=== PATIENT | male | born 1995 | race Two or more races ===

== ENCOUNTER 2024-09-17 22:53 | Emergency (ER) | payer MEDICAID, SELFPAY ==
[2024-09-17 22:53] VITALS: PULSE 83; RESP 18; O2SAT 99; BMI 25.0
[2024-09-17 23:01] VITALS: BP 133/65; PULSE 87; RESP 19; TEMP 36.8; O2SAT 99
--- NOTE | 2024-09-17 23:04 | PD.EDRME ---
Rapid Medical Screening Exam RME Arrival date/time: 09/17/24 22:53 28M with history of drug use, homelessness, and lower extremity cellulitis/osteo presents to ED with several days of LLE pain, swelling, and tenderness. Patient is on amoxicillin from clinic. Chief Complaint: Extremity Injury, Lower Vital signs: Vital Signs Temperature 98.2 F 09/17/24 23:01 Pulse Rate 87 09/17/24 23:01 Respiratory Rate 19 09/17/24 23:01 Blood Pressure 133/65 H 09/17/24 23:01 Pulse Oximetry (%) 99 09/17/24 23:01 Oxygen Delivery Method Room Air 09/17/24 23:01
--- NOTE | 2024-09-17 23:05 | XR_ITS ---
Examination: Duplex scan of the lower extremity, unilateral left complete Date and time of exam: September 17, 2024 11:38 PM Indications: Left leg swelling beginning one year ago post injury to the leg Technique: Duplex scan of the extremity veins using B-mode/grayscale imaging and Doppler spectral analysis and color flow Attention is directed to internal echogenicity, compression and augmentation involving these veins, color flow assessment, spectral analysis Findings: Major deep venous structures in the extremity demonstrate normal course and caliber. There is no evidence of deep vein thrombosis. Normal color flow and spectral analysis Impression: Negative for DVT..
[2024-09-17 23:54] LABS: Basophils % (Auto) 0 % (0-2.5); Eosinophils # (Auto) 0.1 Thou/mm3 (0.0-0.5); Eosinophils % (Auto) 1 % (0-10); Hematocrit 35.9 % (41.0-53.0); Hemoglobin 12.1 g/dL (13.5-16.0); Immature Granulocytes % (Auto) 0 % (0-0); Immature Granulocytes Auto 0.02 Thou/mm3 (0.00-0.00); Lymphocytes # (Auto) 1.3 Thou/mm3 (1.0-4.8); Lymphocytes % (Auto) 15 % (10-50); Mean Corpuscular HGB Conc 33.7 g/dl (31.0-37.0); Mean Corpuscular Hemoglobin 30.7 pg (25.0-35.0); Mean Corpuscular Volume 91 fL (80-100); Monocytes # (Auto) 0.7 Thou/mm3 (0.0-0.8); Monocytes % (Auto) 9 % (0-12); Neutrophils # (Auto) 6.5 Thou/mm3 (1.8-7.7); Neutrophils % (Auto) 75 % (37-80); Nucleated Red Blood Cell % 0 /100 WBC (0); Platelet Count 288 Thou/mm3 (140-440); RDW Standard Deviation 43.4 fL (35.1-43.9); Red Blood Count 3.94 Miln/mm3 (4.50-5.90); White Blood Count 8.6 Thou/mm3 (3.8-10.6)
[2024-09-18 00:15] LABS: Alanine Aminotransferase 16 U/L (10-49); Albumin, Serum 4.4 gm/dL (3.5-5.0); Albumin/Globulin Ratio 1.7 (1.2-2.2); Alkaline Phosphatase 199 U/L (46-116); Anion Gap 5 (7-16); Aspartate Amino Transferase < 8 U/L (0-34); BUN/Creatinine Ratio 18 Ratio (12-20); Bilirubin,Total 0.6 mg/dL (0.3-1.2); Blood Urea Nitrogen 14 mg/dL (9-23); C-Reactive Protein 2.7 mg/dL (0.0-0.9); Calcium 9.2 mg/dL (8.3-10.6); Calcium (Corrected) 9.2 mg/dL (8.5-10.1); Carbon Dioxide 28.7 mMol/L (20.0-31.0); Chloride 110 mMol/L (98-107); Creatinine (Component) 0.8 mg/dL (0.6-1.3); Estimated Creatinine Clearance 120.7 mL/min (>60); Globulin 2.6 gm/dL (2.3-3.5); Glucose 90 mg/dL (74-106); Osmolality,Calculated 287 (275-295); Potassium 3.5 mMol/L (3.4-5.1); Sodium 144 mMol/L (136-145); eGFR > 60 See Note
[2024-09-18 00:20] LABS: Sed Rate (ESR) 19 mm/hr (0-15)
--- NOTE | 2024-09-18 01:36 | XR_ITS ---
Examination: CT left lower leg, without contrast. 2-D sagittal reconstructions. 2-D coronal reconstructions. 3-D reconstructions. Date and time of exam:2023 0322 hrs. Indications: Left lower leg swelling and pain beginning 3 days ago, history operative reduction internal fixation fractures mid left tibial shaft on plain films October 04, 2023 CTDI: vol (mGy):7.95 DLP: (mGycm):588 Technique: Multiple 1.25 mm axial sections of the left lower leg have been obtained. 2-D sagittal and coronal reconstructions have been obtained. 3-D reconstructions have been obtained. Low dose protocols were performed. One or more of the following dose reduction techniques were used; automated exposure control, adjustment of the mA and/or KV according to patient size, use of iterative reconstruction technique. 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
--- NOTE | 2024-09-18 01:43 | PD.EDLOWEX ---
Lower Extremity Injury RME/HPI General Chief Complaint: Extremity Injury, Lower Stated Complaint: LEFT LEG SWELLING Time Seen by Provider: 09/18/24 06:03 Arrival date/time: 09/17/24 22:53 RME / HPI RME / HPI Narrative: 09/17/24 22:53 29-year-old male patient known case of homelessness, polysubstance use disorder, history of left tibia status post ORIF with nonunion, poor historian, presented to the ED due to left leg pain and swelling. Patient reported that he came to the ED previously and he was given amoxicillin and other antibiotics however he stopped using these medications and his swelling worsened and the pain become more severe. Patient denied any fever however he reported episodes of vomiting. Related Data Home Medications ?Medication ?Instructions ?Recorded ?Confirmed hydrocodone 5 mg-acetaminophen 325 1 tab PO Q8HR PRN Pain 12/10/23 mg tablet Previous Rx's ?Medication ?Instructions ?Recorded hydrocodone 5 mg-acetaminophen 325 1 tab PO BID PRN pain #8 tabs 05/06/24 mg tablet ibuprofen 800 mg tablet 800 mg PO TID PRN pain #30 tabs 05/06/24 ibuprofen 800 mg tablet 800 mg PO Q8H #14 tabs 06/13/24 Allergies Allergy/AdvReac Type Severity Reaction Status Date / Time No Known Allergies Allergy Verified 12/10/23 11:21 ED Exam Narrative Physical exam: GEN: Disheveled, easily distractible, poor eye contact HEENT: NC/AC, oral mucosa moist, neck supple CVS: RRR, S1-S2 present, no murmurs appreciated RESP: CTAB GI: soft,non distended, non tender, NBS MSK: Left lower extremity swelling, nonpitting, with tenderness, however no hotness. SKIN: Needle rodriguez on both cubital fossa's, left leg skin showed blackish discoloration, looks dirty. 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 Course Quality Measures none Orders Category Date Time Status CT lower leg LT wo con Stat Exams 09/18/24 01:36 Completed US venous doppler LE LT Stat Exams 09/17/24 23:05 Completed CBC Stat Lab 09/17/24 23:36 Completed CMP [Comprehensive Metabolic Panel] Stat Lab 09/17/24 23:36 Completed CRP [C-Reactive Protein] Stat Lab 09/17/24 23:36 Completed ESR [Sed Rate (ESR)] Stat Lab 09/17/24 23:36 Completed LORazepam [Ativan Inj] Med 09/18/24 08:44 Discontinued 2 mg .ROUTE .STK-MED ONE Vital Signs Vital signs: Vital Signs Temperature 98.2 F 09/17/24 23:01 Pulse Rate 87 09/17/24 23:01 Respiratory Rate 19 09/17/24 23:01 Blood Pressure 133/65 H 09/17/24 23:01 Pulse Oximetry (%) 99 09/17/24 23:01 Oxygen Delivery Method Room Air 09/17/24 23:01 Extremity Injury, Lower Patient data External records reviewed:: [facility] previous records Clinical information provided by:: patient Social determinants that could affect healthcare access:: mental health Patient has the following chronic illnesses:: See chart How is presenting disease/condition affected by chronic disease/condition?: exacerbated by Evaluation data The following diagnostics were reviewed and interpreted by me:: lab results and radiology exam(s) Lab and/or radiology exams considered but not ordered:: None Interpretation Summary: Cellulitis Medications / Prescriptions Medications or Prescriptions considered but not ordered:: None Medication administrations:: Medication Administration History Discontinued Medications Lorazepam (Lorazepam 2 Mg/Ml Vial) Confirm Administered Dose 2 mg .ROUTE .STK-MED ONE Stop: 09/18/24 08:45 Last Admin: 09/18/24 09:07 Dose: Not Given Documented By: HUGH Non-Admin Reason: Wrong Patient See chart Consultations Consultation(s) initiated? (list below): No Diagnosis Most likely diagnosis given after review of the tests above:: Cellulitis Admission Indicated Admission indicated?: not indicated (Diagnostic tests pending) Admission Request Was there a request for admission?: No Disposition Plan Disposition Plan: other (specify) (Diagnostic tests pending) Discharge Plan Plan Patient Disposition: Home w/HOME HEALTH Patient condition on transfer: Stable Prescriptions/Referrals Prescriptions/Med Rec: No Action ibuprofen 800 mg tablet 800 mg PO TID PRN (Reason: pain) Qty: 30 0RF hydrocodone-acetaminophen 5-325 mg tablet 1 tab PO BID MDD 10 PRN (Reason: pain) Qty: 8 0RF ibuprofen 800 mg tablet 800 mg PO Q8H Qty: 14 0RF hydrocodone-acetaminophen 5-325 mg tablet 1 tab PO Q8HR PRN (Reason: Pain) Patient Comments: take 1 to 2 tablets by mouth every 8 to 12 hours NEEDED FOR PAIN Referrals: Tim Mario [Primary Care Provider] - In 1 week Problem List Clinical Impression: Edema Patient/Caregiver Discharge Instructions Discharge Activity: activity as tolerated Education Materials: ED Leg Swelling in a Single Leg Print Language: Grenadian Stand Alone Forms: Saundra Award Info., Patient Portal Info Letter Attestation Attestation At 0600 on 09/18/24, the care of the patient was transferred to Dr. Bautista. Fredrick Jaffe MD
--- NOTE | 2024-09-18 03:11 | PC.NURSE ---
PER STOCK CONTROLLER, PT REFUSING TO GO TO CT. STOCK CONTROLLER ATTEMPTED TO TAKE PT 3 TIMES BUT PT WOULD NOT GO.
[2024-09-18 04:35] VITALS: BP 127/78; PULSE 60; RESP 17; TEMP 37; O2SAT 97
--- NOTE | 2024-09-18 06:50 | PD.EDADDENDU ---
Emergency Room Addendum Addendum Narrative: Patient's care was transitioned to me from Dr. Gordon. Patient states his edema is chronic. I spoke to Dr. Martell at [facility]. His clinical presentation and the radiology images are consistent with edema and are not of infectious etiology.
--- NOTE | 2024-09-18 06:59 | PRELIM_ITS ---
CT scan of the left lower extremity without intravenous contrast (axial sections with sagittal and co vitaliy reformats) September 18, 2024 0322 hours Clinical History: Left lower leg swelling and pain. Com pared with the prior study dated June 02, 2023Findings:There is fixation of the tibia via intramedu llary nail and screws. There is no evidence of hardware loosening or break. There is a fracture of th e mid shaft of the tibia with calcification/callus, cortical thickening and periosteal reaction. Ther e is deformity and focal areas of cortical interruption at the proximal third of the tibia. There is an old healed fracture of the distal shaft of the fibula. There is diffuse cutaneous thickening with subcutaneous and intermuscular soft tissue edema at the leg, ankle and dorsum of the foot. No loculat ed fluid collections. No dislocation is noted. No joint effusion is noted. The visualized muscles ar e unremarkableImpression:1. Status post fixation of fracture of the mid shaft of the tibia. No signif icant interval change in alignment,2. Diffuse cutaneous thickening with subcutaneous and intermuscula r soft tissue edema at the leg, ankle and dorsum of the foot, nonspecific . No loculated fluid collec tions.3. Other findings as described above. Discussion Details: Results Discussed With : Dr. Pearl pizarro at 06:24 AM 09/18/2024 Report Electronically Signed By: Chidi Martell 09/18/2024 6:58:46 AM [EST ]
--- NOTE | 2024-09-18 08:39 | PD.EDADDENDU ---
Emergency Room Addendum Addendum Narrative: The preliminary radiology report and the final opinion of radiology is completely different. Clinically, patient does not have any evidence of osteomyelitis based on examination. His white count is normal. He has been treated for osteomyelitis for a very long time. Decision about this discrepancy and his outcome will be determined by his orthopedist. Patient is made aware of this discrepancy
== END 2024-09-18 09:22 | disposition home health service (06) ==
PROVIDERS: Physician Assistant; Emergency Provider Emergency Medicine; PCP Physician Assistant
DX: R60.9 Edema, unspecified (principal); Z59.00 Homelessness unspecified
CPT/HCPCS: 36415; 73700; 80053; 80061; 80307; 82043; 82570; 82607; 82746; 83036; 83090; 83735; 83921; 84100; 84443; 85025; 85652; 86140; 93971; 99284

== ENCOUNTER 2024-09-30 01:24 | Emergency (ER) | payer MEDICAID, SELFPAY ==
[2024-09-30 02:01] VITALS: BP 127/78; PULSE 74; RESP 19; TEMP 36.6; O2SAT 100; BMI 22.1
--- NOTE | 2024-09-30 02:19 | PD.EDRME ---
Rapid Medical Screening Exam RME Arrival date/time: 09/30/24 01:24 29M with history of drug use, homelessness, and lower extremity cellulitis/osteo presents to ED with worsening LLE swelling/pain that is now in the RLE. There was a question of extensive osteomyelitis vs chronic swelling during previous visit for the same complaint. Chief Complaint: Extremity Problem,Nontraumatic Vital signs: Vital Signs Temperature 98 F 09/30/24 02:01 Pulse Rate 74 09/30/24 02:01 Respiratory Rate 19 09/30/24 02:01 Blood Pressure 127/78 09/30/24 02:01 Pulse Oximetry (%) 100 09/30/24 02:01 Oxygen Delivery Method Room Air 09/30/24 02:01
[2024-09-30 02:55] LABS: Basophils # (Auto) 0.1 Thou/mm3 (0.0-0.2); Basophils % (Auto) 1 % (0-2.5); Eosinophils % (Auto) 0 % (0-10); Hematocrit 37.6 % (41.0-53.0); Hemoglobin 12.7 g/dL (13.5-16.0); Immature Granulocytes % (Auto) 0 % (0-0); Immature Granulocytes Auto 0.02 Thou/mm3 (0.00-0.00); Lymphocytes # (Auto) 1.5 Thou/mm3 (1.0-4.8); Lymphocytes % (Auto) 18 % (10-50); Mean Corpuscular HGB Conc 33.8 g/dl (31.0-37.0); Mean Corpuscular Hemoglobin 29.7 pg (25.0-35.0); Mean Corpuscular Volume 88 fL (80-100); Monocytes # (Auto) 0.5 Thou/mm3 (0.0-0.8); Monocytes % (Auto) 6 % (0-12); Neutrophils # (Auto) 6.6 Thou/mm3 (1.8-7.7); Neutrophils % (Auto) 76 % (37-80); Nucleated Red Blood Cell % 0 /100 WBC (0); Platelet Count 355 Thou/mm3 (140-440); RDW Standard Deviation 41.1 fL (35.1-43.9); Red Blood Count 4.27 Miln/mm3 (4.50-5.90); White Blood Count 8.7 Thou/mm3 (3.8-10.6)
[2024-09-30 03:08] LABS: Alanine Aminotransferase 18 U/L (10-49); Albumin, Serum 4.7 gm/dL (3.5-5.0); Albumin/Globulin Ratio 1.9 (1.2-2.2); Alkaline Phosphatase 183 U/L (46-116); Anion Gap 7 (7-16); Aspartate Amino Transferase 19 U/L (0-34); BUN/Creatinine Ratio 19 Ratio (12-20); Bilirubin,Total 0.9 mg/dL (0.3-1.2); Blood Urea Nitrogen 17 mg/dL (9-23); C-Reactive Protein 0.8 mg/dL (0.0-0.9); Calcium 9.5 mg/dL (8.3-10.6); Calcium (Corrected) 9.5 mg/dL (8.5-10.1); Carbon Dioxide 26.5 mMol/L (20.0-31.0); Chloride 106 mMol/L (98-107); Creatinine (Component) 0.9 mg/dL (0.6-1.3); Estimated Creatinine Clearance 114.4 mL/min (>60); Globulin 2.5 gm/dL (2.3-3.5); Glucose 110 mg/dL (74-106); Osmolality,Calculated 280 (275-295); Potassium 3.8 mMol/L (3.4-5.1); Sodium 139 mMol/L (136-145); Total Protein 7.2 gm/dL (5.7-8.2); eGFR > 60 See Note
[2024-09-30 03:17] LABS: Sed Rate (ESR) 16 mm/hr (0-15)
[2024-09-30 04:25] VITALS: BP 136/89; PULSE 60; RESP 17; TEMP 36.7; O2SAT 98
[2024-09-30 06:16] VITALS: BP 126/77; PULSE 59; RESP 18; TEMP 36.6; O2SAT 98
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
[2024-09-30 08:07] VITALS: BP 122/83; PULSE 54; RESP 12; O2SAT 99
[2024-09-30] MEDS: ACETAMINOPHEN 325 MG TABLET 650 MG PO (08:10)
[2024-09-30 08:11] VITALS: TEMP 36.9
[2024-09-30 08:36] VITALS: BP 122/83; PULSE 76; RESP 18; TEMP 36.9; O2SAT 100
--- NOTE | 2024-09-30 08:39 | PC.NURSE ---
Pt given discharge instructions but wants to talk to social services designee about getting a ride home.
--- NOTE | 2024-09-30 09:32 | PC.CC ---
AZIZA Desai consulted with Leatha JEAN for transportation for the patient back home. JESSICAW arranged transportation [facility].
--- NOTE | 2024-09-30 09:36 | PC.NURSE ---
Pt asked to be taken to [facility] in [place], [place]. Pt asked if he would like to go a home address instead. Per pt, No. I will go from there. Valery informed of pt's request. Pt walked out side to wait for his uber. Pt given post it with make/model and plate number. All belongings were taken by pt.
== END 2024-09-30 09:41 | disposition home or self-care (01) ==
PROVIDERS: Physician Assistant; Emergency Provider Emergency Medicine; PCP Physician Assistant
DX: M79.89 Other specified soft tissue disorders (principal)
CPT/HCPCS: 36415; 80053; 85025; 85652; 86140; 99283; A9270

== ENCOUNTER 2024-10-19 19:06 | Emergency (ER) | payer MEDICAID, SELFPAY ==
[2024-10-19 19:28] VITALS: BP 144/91; PULSE 117; RESP 18; TEMP 37.7; O2SAT 96; BMI 23.6
--- NOTE | 2024-10-19 19:52 | PD.EDSKIN ---
ED Skin Abcess FB-RME/HPI General Chief complaint: General Adult/Misc Complain Stated complaint: pain management meds/ need refill/ wants lab jovani Time Seen by Provider: 10/19/24 19:47 Arrival date/time: 10/19/24 19:06 29M with history of drug use, homelessness, and chronic lower extremity cellulitis/osteo presents to ED wanting some pain meds and a referral for previous surgery done on lower extremities. Patient has been here for multiple times for this in the past few weeks. Limitations: no limitations Related Data Home Medications ?Medication ?Instructions ?Recorded ?Confirmed hydrocodone 5 mg-acetaminophen 325 1 tab PO Q8HR PRN Pain 12/10/23 mg tablet Previous Rx's ?Medication ?Instructions ?Recorded hydrocodone 5 mg-acetaminophen 325 1 tab PO BID PRN pain #8 tabs 05/06/24 mg tablet ibuprofen 800 mg tablet 800 mg PO TID PRN pain #30 tabs 05/06/24 ibuprofen 800 mg tablet 800 mg PO Q8H #14 tabs 06/13/24 acetaminophen 500 mg tablet 500 mg PO Q6H PRN fever or pain 10/19/24 #30 tabs sulfamethoxazole 800 1 tab PO BID 10 days #20 tabs 10/19/24 mg-trimethoprim 160 mg tablet (Bactrim DS) Allergies Allergy/AdvReac Type Severity Reaction Status Date / Time No Known Allergies Allergy Verified 10/19/24 19:07 Review of Systems Review of Systems Systems Reviewed: All systems reviewed, normal except as documented Constitutional Constitutional: Reports system reviewed and no additional complaints, except as documented, Denies fever(s) and Denies headache(s) ENT Ears, Nose, Mouth, and Throat: Denies disequilibrium and Denies headache(s) Cardiovascular Cardiovascular: Reports system reviewed and no additional complaints, except as documented, Denies chest pain and Denies dyspnea Respiratory Respiratory: Reports system reviewed and no additional complaints, except as documented, Denies cough and Denies dyspnea Gastrointestinal Gastrointestinal: Reports system reviewed and no additional complaints, except as documented, Denies abdominal pain, Denies nausea and Denies vomiting Integumentary/Breasts Skin/Breast: Reports as per HPI Neurologic Neurologic: Reports system reviewed and no additional complaints, except as documented, Denies confusion, Denies disequilibrium and Denies headache(s) Psychiatric Psychiatric: Denies confusion Past Medical History Past Medical History NEUROLOGIC: Negative Neurological Disorders or Seizures CARDIAC: Negative Cardiac Disorders or Congestive Heart Failure RESPIRATORY: Negative Chronic Obstructive Pulmonary Disease (COPD) or Asthma GASTROINTESTINAL: Negative Gastrointestinal Disorders or Hepatitis GENITOURINARY: Negative Genitourinary Disorders or Renal Disease REPRODUCTIVE: Negative Testicular Cancer MUSCULOSKELETAL: Positive Musculoskeletal Disorders, Fractures and Osteomyelitis (l lower leg); Negative Carpal Tunnel Syndrome ENT: Negative Cataracts ENDOCRINE: Negative Endocrine Disorders, Diabetes Mellitus Type 1 or Diabetes Mellitus Type 2 HEMATOLOGIC: Negative Blood Disorders or Sickle Cell Disease PSYCHO/SOCIAL: Positive Recreational Drug Use OTHER HISTORY: Positive Hospitalization and Anesthesia Reactions (I can almost wake up. I can hear the doctor in operating table.); Negative Autoimmune Disease, Down Syndrome, Developmental Delay, Shingles, Falls, Blood Transfusion Reaction, Organ Transplant, Chemotherapy, Radiation Therapy, Hyperbaric Therapy, MRSA, VRSA, Vancomycin-Resistant Enterococci, Human Immunodeficiency Virus (HIV), Chicken Pox, Measles, Mumps, Rubella (Yoruba Measles), Pertussis, Clostridium Difficile, Cancer or Testicular Cancer Family History FAMILY HISTORY: Negative Family Psychiatric Problems, Family Respiratory Disorders, Family Cardiac Disorders, Family Gastrointestinal Problems, Family Cancer, Family Surgery or Family Anesthesia Reaction Surgical History SURGICAL: Positive Joint Replacement and Open Reduction Internal Fixation; Negative Cardiac Surgery, Carotid Endarterectomy, Endocrine Surgery, Thyroidectomy, Ear Surgery, Tympanostomy Tube, Eye Surgery, Nose Surgery, Oral Surgery, Tonsillectomy, Adenoidectomy, Cochlear Implant, Corneal Transplant, Throat Surgery, Abdominal Surgery, Tracheostomy, Nephrectomy, Transurethral Resection, Amputation, Arthroscopy, Neurologic Surgery, Brain Shunt, Vasectomy or Organ Transplant Social History SMOKING STATUS: Current every day smoker SECOND HAND EXPOSURE: No (couple cig once or twice a week>10yrs-QUIT 12/08/23) ED Exam General Limitations: Present no limitations General appearance: Present alert and in no apparent distress Head Head exam: Present atraumatic Eye Eye exam: Present normal appearance, PERRL and EOMI ENT ENT exam: Present normal exam, normal oropharynx and mucous membranes moist Neck Neck exam: Present normal inspection, full ROM and trachea midline Chest Chest inspection: Present normal inspection and symmetric chest wall rise Respiratory Respiratory exam: Present normal lung sounds bilaterally Cardiovascular Cardiovascular exam: Present regular rate, normal rhythm and normal heart sounds Abdominal Exam Abdominal exam: Present soft and normal bowel sounds Extremities Exam Extremities exam: Present full ROM Expanded Lower Extremity Exam Lower leg exam: Present swelling Ankle exam: Present swelling Back Exam Back exam: Present normal inspection and full ROM Neurological Exam Neurological exam: Present alert, oriented X3 and CN II-XII intact Psychiatric Psychiatric exam: Present normal affect and normal mood Skin Skin exam: Present warm, dry, intact and normal color Course Quality Measures none Orders Category Date Time Status Acetaminophen Tab [Tylenol ES Tab] Med 10/19/24 19:49 Discontinued 1,000 mg PO X1 ONE Trimethoprim/Sulfa 160/800 Ds [Bactrim Ds] Med 10/19/24 19:49 Discontinued 1 tab PO X1 ONE Vital Signs Vital signs: Vital Signs Temperature 99.9 F 10/19/24 19:28 Pulse Rate 117 H 10/19/24 19:28 Respiratory Rate 18 10/19/24 19:28 Blood Pressure 144/91 H 10/19/24 19:28 Pulse Oximetry (%) 96 10/19/24 19:28 Oxygen Delivery Method Room Air 10/19/24 19:28 O2 at 96% on RA and WNLs Skin / Abscess / Foreign Body MDM Narrative MDM Narrative:: 29M with history of drug use, homelessness, and chronic lower extremity cellulitis/osteo presents to ED wanting some pain meds and a referral for previous surgery done on lower extremities. Patient has been here for multiple times for this in the past few weeks. Physical exam reveals bilateral lower extremity swelling from placement of previous hardware. No gross tenderness or redness. Patient is afebriel, calm, and alert. Meds and careers counsellor given. Patient data External records reviewed:: [facility] previous records Clinical information provided by:: patient Social determinants that could affect healthcare access:: housing Patient has the following chronic illnesses:: drug use, homelessness, and chronic lower extremity cellulitis/osteo How is presenting disease/condition affected by chronic disease/condition?: caused by Evaluation data The following diagnostics were reviewed and interpreted by me:: other (specify) (none) Lab and/or radiology exams considered but not ordered:: not ordered Interpretation Summary: n/a Medications / Prescriptions Medications or Prescriptions considered but not ordered:: ordered Medication administrations:: Medication Administration History Discontinued Medications Acetaminophen (Acetaminophen 500 Mg Tablet) 1,000 mg PO X1 ONE Stop: 10/19/24 19:50 Trimethoprim/Sulfamethoxazole (Trimethoprim/Sulfa 160/800 Ds Tablet) 1 tab PO X1 ONE Stop: 10/19/24 19:50 above Consultations Consultation(s) initiated? (list below): No Diagnosis Skin/Abscess Differential Diagnosis: abscess of skin or subcutaneous tissue, viral exanthem, dermatophytosis, urticaria, herpes zoster, allergic reaction to drug, cellulitis, eczema, insect bites, impetigo and contact dermatitis Most likely diagnosis given after review of the tests above:: cellulitis Admission Indicated Admission indicated?: not indicated Admission Request Was there a request for admission?: No Disposition Plan Disposition Plan: Discharge Discharge Attestation Discharge Attestation: The patient and all family members were given an opportunity to ask questions and understood the discharge instructions. Discharge instructions specifically effects, indications for sooner follow up or return to the emergency department, and the expected course of current diagnosis. Patient condition: Stable Discharge Plan Plan Patient Disposition: HOME (Self Care) Disposition Comment: Stable Prescriptions/Referrals Prescriptions/Med Rec: New sulfamethoxazole-trimethoprim [Bactrim DS] 800-160 mg tablet 1 tab PO BID 10 Days Qty: 20 0RF acetaminophen 500 mg tablet 500 mg PO Q6H PRN (Reason: fever or pain) Qty: 30 0RF No Action ibuprofen 800 mg tablet 800 mg PO TID PRN (Reason: pain) Qty: 30 0RF hydrocodone-acetaminophen 5-325 mg tablet 1 tab PO BID MDD 10 PRN (Reason: pain) Qty: 8 0RF ibuprofen 800 mg tablet 800 mg PO Q8H Qty: 14 0RF hydrocodone-acetaminophen 5-325 mg tablet 1 tab PO Q8HR PRN (Reason: Pain) Patient Comments: take 1 to 2 tablets by mouth every 8 to 12 hours NEEDED FOR PAIN Problem List Clinical Impression: Cellulitis Patient/Caregiver Discharge Instructions Education Materials: ED Cellulitis Additional Instructions: Please follow-up with PCP within 24-48 hours and return immediately if symptoms worsen. Print Language: Hungarian Stand Alone Forms: Patient Portal Info Letter JUNIOR/BEAU Supervising Physician JUNIOR/BEAU Supervising Physician: Dr. Jaffe
[2024-10-19 19:53] VITALS: TEMP 37.7
[2024-10-19] MEDS: ACETAMINOPHEN 500 MG TABLET 1000 MG PO (19:53)
[2024-10-19] MEDS: TRIMETHOPRIM/SULFA 160/800 DS TABLET 1 TAB PO (19:53)
== END 2024-10-19 20:25 | disposition home or self-care (01) ==
LOC: SERX 20:06
PROVIDERS: Emergency Provider Emergency Medicine
DX: L03.116 Cellulitis of left lower limb (principal); Z59.00 Homelessness unspecified
CPT/HCPCS: 99282; A9270

== ENCOUNTER 2024-11-16 02:53 | Emergency (ER) | payer MEDICAID, SELFPAY ==
[2024-11-16 02:55] VITALS: BMI 17.6
[2024-11-16 03:08] VITALS: BP 131/86; PULSE 105; RESP 17; TEMP 36.8; O2SAT 97
--- NOTE | 2024-11-16 03:14 | PD.EDRME ---
Rapid Medical Screening Exam RME Arrival date/time: 11/16/24 02:53 29-year-old male with past medical history of recreational drug use, homelessness, and lower extremity cellulitis presents emergency department complaining of left lower extremity increased edema and pain with fevers and chills for 3 days. Chief Complaint: Extremity Injury, Lower Time Seen by Provider: 11/16/24 03:01 Vital signs: Vital Signs Temperature 98.2 F 11/16/24 03:08 Pulse Rate 105 H 11/16/24 03:08 Respiratory Rate 17 11/16/24 03:08 Blood Pressure 131/86 H 11/16/24 03:08 Pulse Oximetry (%) 97 11/16/24 03:08 Oxygen Delivery Method Room Air 11/16/24 03:08 Vital signs reviewed by provider: Yes
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
[2024-11-16] MEDS: ACETAMINOPHEN 500 MG TABLET 1000 MG PO (03:28)
--- NOTE | 2024-11-16 04:42 | PRELIM_ITS ---
Left lower extremity venous Doppler ultrasound with wave Doppler spectral analysis. November 16, 2024 0337 hours Clinical history: Rule out DVT increased swelling and pain Comparison: None.Findings:Castillo scale, color flow and spectral Doppler evaluation of the left lower extremity deep veins was performe d.The common femoral, superficial femoral and popliteal veins are patent and compressible. Normal res piratory variation is noted. There is no evidence of occlusive or nonocclusive thrombus. The great sa phenous vein is patent and compressible at the level of the saphenofemoral junction. The calf veins t o the extent visualized are patent. Impression:No sonographic evidence of deep venous thrombosis in t he left lower extremity. Report Electronically Signed By: Lev Parkinson 11/16/2024 4:41:19 AM [EST]
[2024-11-16 05:47] LABS: Collection Type, Urine Clean Catch
[2024-11-16 05:51] LABS: Basophils % (Auto) 0 % (0-2.5); Eosinophils % (Auto) 0 % (0-10); Hematocrit 35.2 % (41.0-53.0); Hemoglobin 12.3 g/dL (13.5-16.0); Immature Granulocytes % (Auto) 0 % (0-0); Immature Granulocytes Auto 0.01 Thou/mm3 (0.00-0.00); Lymphocytes # (Auto) 1.9 Thou/mm3 (1.0-4.8); Lymphocytes % (Auto) 23 % (10-50); Mean Corpuscular HGB Conc 34.9 g/dl (31.0-37.0); Mean Corpuscular Hemoglobin 30.2 pg (25.0-35.0); Mean Corpuscular Volume 87 fL (80-100); Monocytes # (Auto) 0.9 Thou/mm3 (0.0-0.8); Monocytes % (Auto) 11 % (0-12); Neutrophils # (Auto) 5.3 Thou/mm3 (1.8-7.7); Neutrophils % (Auto) 65 % (37-80); Nucleated Red Blood Cell % 0 /100 WBC (0); Platelet Count 181 Thou/mm3 (140-440); RDW Standard Deviation 41.3 fL (35.1-43.9); Red Blood Count 4.07 Miln/mm3 (4.50-5.90); White Blood Count 8.1 Thou/mm3 (3.8-10.6)
[2024-11-16 05:58] LABS: Bilirubin,Urine Negative (Negative); Blood,Urine Negative (Negative); Clarity,Urine Clear (Clear/Hazy); Color,Urine Yellow (Lt Yel-Yel); Culture Indicated,Urine Not Indicated; Glucose, Urine Negative (Negative); Ketones,Urine Trace (Negative); Leukocyte Esterase,Urine Negative (Negative); Nitrite,Urine Negative (Negative); Protein,Urine 2+ (Neg - Trace); RBC,Urine 2 /hpf (0-3); Specific Gravity,Urine 1.037 (1.001-1.035); Squamous Epithelial Cell,Urine < 1 /hpf (0-5); Urobilinogen,Urine Negative mg/dL (0.0-1.0); WBC,Urine 2 /hpf (0-5)
[2024-11-16 06:00] LABS: Sperm,Urine Present
[2024-11-16 06:07] LABS: Amphetamine/Methamp Scrn,U Positive (Negative); Barbiturate Screen,Urine Negative (Negative); Benzodiazepines Screen,Urine Negative (Negative); Benzoylecgonine Screen, Ur Negative (Negative); Fentanyl Screen,Urine Negative (Negative); Opiate Screen,Urine Negative (Negative); THC Screen,Urine Positive (Negative)
[2024-11-16 06:17] LABS: Alanine Aminotransferase 22 U/L (10-49); Albumin, Serum 4.6 gm/dL (3.5-5.0); Albumin/Globulin Ratio 1.6 (1.2-2.2); Alkaline Phosphatase 172 U/L (46-116); Anion Gap 11 (7-16); Aspartate Amino Transferase 22 U/L (0-34); BUN/Creatinine Ratio 22 Ratio (12-20); Bilirubin,Total 2.7 mg/dL (0.3-1.2); Blood Urea Nitrogen 20 mg/dL (9-23); Calcium 9.6 mg/dL (8.3-10.6); Calcium (Corrected) 9.6 mg/dL (8.5-10.1); Carbon Dioxide 24.4 mMol/L (20.0-31.0); Chloride 105 mMol/L (98-107); Creatinine (Component) 0.9 mg/dL (0.6-1.3); Estimated Creatinine Clearance 99.2 mL/min (>60); Globulin 2.8 gm/dL (2.3-3.5); Glucose 99 mg/dL (74-106); Osmolality,Calculated 282 (275-295); Potassium 3.9 mMol/L (3.4-5.1); Sodium 140 mMol/L (136-145); Total Protein 7.4 gm/dL (5.7-8.2); eGFR > 60 See Note
--- NOTE | 2024-11-16 07:09 | PC.NURSE ---
CALLED PT IN ER LOBBY AND OUTSIDE OF ER TO BE PLACE IN A ROOM AND NO ANSWER.
--- NOTE | 2024-11-16 07:10 | PC.NURSE ---
CALL PT FROM LOBBY AND OUTSIDE NO ANSWER
--- NOTE | 2024-11-16 07:26 | PC.NURSE ---
called from lobby and no answer
--- NOTE | 2024-11-16 07:46 | PC.NURSE ---
CALLED FROM LOBBY AND NO ANSWER
== END 2024-11-16 07:47 | disposition left against medical advice (07) ==
PROVIDERS: Emergency Provider Emergency Medicine; PCP Family Medicine
DX: R50.9 Fever, unspecified (principal); R60.0 Localized edema; Z59.00 Homelessness unspecified; Z53.29 Procedure and treatment not carried out because of patient's decision for other reasons
CPT/HCPCS: 36415; 80053; 80307; 81001; 85025; 93971; 99284; A9270

== ENCOUNTER 2024-11-16 23:39 | Emergency (ER) | payer MEDICAID, SELFPAY ==
[2024-11-16 23:41] VITALS: BMI 23.4
[2024-11-16 23:57] VITALS: BP 161/97; PULSE 113; RESP 18; TEMP 37.3; O2SAT 98
--- NOTE | 2024-11-17 00:35 | EDNOTE_ITS ---
Lower Extremity Injury RME/HPI General Chief Complaint: Extremity Injury, Lower Stated Complaint: PAIN IN LEFT LEG Time Seen by Provider: 11/17/24 00:26 Source: patient Arrival date/time: 11/16/24 23:39 29-year-old male past medical history of substance abuse presents emergency department complaining of left leg pain for several days. Patient was seen earlier today had ultrasound done that was negative and labs that were unremarkable. Mode of arrival: ambulatory Limitations: no limitations Related Data Home Medications ?Medication ?Instructions ?Recorded ?Confirmed hydrocodone 5 mg-acetaminophen 325 1 tab PO Q8HR PRN Pain 12/10/23 mg tablet Previous Rx's ?Medication ?Instructions ?Recorded hydrocodone 5 mg-acetaminophen 325 1 tab PO BID PRN pain #8 tabs 05/06/24 mg tablet ibuprofen 800 mg tablet 800 mg PO TID PRN pain #30 tabs 05/06/24 ibuprofen 800 mg tablet 800 mg PO Q8H #14 tabs 06/13/24 acetaminophen 500 mg tablet 500 mg PO Q6H PRN fever or pain 10/19/24 #30 tabs Allergies Allergy/AdvReac Type Severity Reaction Status Date / Time No Known Allergies Allergy Verified 10/19/24 19:07 Review of Systems Review of Systems Systems Reviewed: All systems reviewed, normal except as documented Constitutional Constitutional: Reports system reviewed and no additional complaints, except as documented, Denies body ache(s), Denies chills and Denies fever(s) Eyes Eyes: Reports system reviewed and no additional complaints, except as documented and Denies change in vision ENT Ears, Nose, Mouth, and Throat: Reports system reviewed and no additional complaints, except as documented, Denies disequilibrium, Denies dizziness, Denies sore throat and Denies vertigo Cardiovascular Cardiovascular: Reports system reviewed and no additional complaints, except as documented, Denies chest pain and Denies dyspnea Respiratory Respiratory: Reports system reviewed and no additional complaints, except as documented, Denies chest congestion, Denies cough and Denies dyspnea Gastrointestinal Gastrointestinal: Reports system reviewed and no additional complaints, except as documented, Denies abdominal pain, Denies nausea and Denies vomiting Musculoskeletal Musculoskeletal: Reports system reviewed and no additional complaints, except as documented, Denies abnormal gait, Reports arthralgias and Reports other (Leg pain) Integumentary/Breasts Skin/Breast: Reports system reviewed and no additional complaints, except as documented, Denies erythema, Denies rash and Denies wounds Neurologic Neurologic: Reports system reviewed and no additional complaints, except as d ocumented, Denies abnormal gait, Denies disequilibrium, Denies dizziness and Denies vertigo Past Medical History Past Medical History NEUROLOGIC: Negative Neurological Disorders or Seizures CARDIAC: Negative Cardiac Disorders or Congestive Heart Failure RESPIRATORY: Negative Chronic Obstructive Pulmonary Disease (COPD) or Asthma GASTROINTESTINAL: Negative Gastrointestinal Disorders or Hepatitis GENITOURINARY: Negative Genitourinary Disorders or Renal Disease REPRODUCTIVE: Negative Testicular Cancer MUSCULOSKELETAL: Positive Musculoskeletal Disorders, Fractures and Osteomyelitis (l lower leg); Negative Carpal Tunnel Syndrome ENT: Negative Cataracts ENDOCRINE: Negative Endocrine Disorders, Diabetes Mellitus Type 1 or Diabetes Mellitus Type 2 HEMATOLOGIC: Negative Blood Disorders or Sickle Cell Disease PSYCHO/SOCIAL: Positive Recreational Drug Use OTHER HISTORY: Positive Hospitalization and Anesthesia Reactions (I can almost wake up. I can hear the doctor in operating table.); Negative Autoimmune Disease, Down Syndrome, Developmental Delay, Shingles, Falls, Blood Transfusion Reaction, Organ Transplant, Chemotherapy, Radiation Therapy, Hyperbaric Therapy, MRSA, VRSA, Vancomycin-Resistant Enterococci, Human Immunodeficiency Virus (HIV), Chicken Pox, Measles, Mumps, Rubella ([place]rainian Measles), Pertussis, Clostridium Difficile, Cancer or Testicular Cancer Family History FAMILY HISTORY: Negative Family Psychiatric Problems, Family Respiratory Disorders, Family Cardiac Disorders, Family Gastrointestinal Problems, Family Cancer, Family Surgery or Family Anesthesia Reaction Surgical History SURGICAL: Positive Joint Replacement and Open Reduction Internal Fixation; Negative Cardiac Surgery, Carotid Endarterectomy, Endocrine Surgery, Thyroidectomy, Ear Surgery, Tympanostomy Tube, Eye Surgery, Nose Surgery, Oral Surgery, Tonsillectomy, Adenoidectomy, Cochlear Implant, Corneal Transplant, Throat Surgery, Abdominal Surgery, Tracheostomy, Nephrectomy, Transurethral Resection, Amputation, Arthroscopy, Neurologic Surgery, Brain Shunt, Vasectomy or Organ Transplant Social History SMOKING STATUS: Current every day smoker SECOND HAND EXPOSURE: No (couple cig once or twice a week>10yrs-QUIT 12/08/23) ED Exam General Limitations: Present no limitations General appearance: Present alert and in no apparent distress Head Head exam: Present atraumatic Eye Eye exam: Present normal appearance, PERRL and EOMI ENT ENT exam: Present normal exam, normal oropharynx and mucous membranes moist Neck Neck exam: Present normal inspection, full ROM and trachea midline Chest Chest inspection: Present normal inspection and symmetric chest wall rise Respiratory Respiratory exam: Present normal lung sounds bilaterally Cardiovascular Cardiovascular exam: Present regular rate, normal rhythm and normal heart sounds Abdominal Exam Abdominal exam: Present soft and normal bowel sounds Extremities Exam Extremities exam: Present normal inspection and full ROM Expanded Lower Extremity Exam Lower leg exam: Present full ROM and swelling (+1 edema left leg); Absent erythema or Homans' sign Gait: observed and normal Back Exam Back exam: Present normal inspection and full ROM Neurological Exam Neurological exam: Present alert, oriented X3 and CN II-XII intact Psychiatric Psychiatric exam: Present normal affect and normal mood Skin Skin exam: Present warm, dry, intact and normal color Course Quality Measures none Orders Category Date Time Status Ibuprofen Tab [Motrin Tab] Med 11/17/24 00:37 Discontinued 600 mg PO X1 ONE Vital Signs Vital signs: Vital Signs Temperature 99.1 F 11/16/24 23:57 Pulse Rate 113 H 11/16/24 23:57 Respiratory Rate 18 11/16/24 23:57 Blood Pressure 161/97 H 11/16/24 23:57 Pulse Oximetry (%) 98 11/16/24 23:57 Oxygen Delivery Method Room Air 11/16/24 23:57 98% room air within normal limits Extremity Injury, Lower MDM Narrative MDM Narrative:: 29-year-old male past medical history of substance abuse presents emergency department complaining of left leg pain for several days. Patient was seen earlier today had ultrasound done that was negative and labs that were unremarkable. Left lower extremity +1 edema with no erythema or induration. Patient's left lower extremity neurovascularly intact. Patient ambulating independently with steady gait. Patient stable for discharge given pain medication and reported improvement. Patient data External records reviewed:: [facility] previous records Clinical information provided by:: patient Social determinants that could affect healthcare access:: substance use Patient has the following chronic illnesses:: See chart How is presenting disease/condition affected by chronic disease/condition?: exacerbated by Evaluation data The following diagnostics were reviewed and interpreted by me:: other (specify) (N/A) Lab and/or radiology exams considered but not ordered:: N/A Interpretation Summary: N/A Medications / Prescriptions Medications or Prescriptions considered but not ordered:: Ordered Medication administrations:: Medication Administration History Discontinued Medications Ibuprofen (Ibuprofen Tab 600 Mg Tablet) 600 mg PO X1 ONE Stop: 11/17/24 00:38 Last Admin: 11/17/24 00:55 Dose: 600 mg Documented By: KF Given Consultations Consultation(s) initiated? (list below): No Diagnosis Extremity Injury, Lower Differential Diagnosis: other (Cellulitis, DVT) Most likely diagnosis given after review of the tests above:: Leg pain Admission Indicated Admission indicated?: not indicated Admission Request Was there a request for admission?: No Disposition Plan Disposition Plan: Discharge Discharge Attestation Discharge Attestation: The patient and all family members were given an opportunity to ask questions and understood the discharge instructions. Discharge instructions specifically effects, indications for sooner follow up or return to the emergency department, and the expected course of current diagnosis. Patient condition: Stable Discharge Plan Plan Patient Disposition: HOME (Self Care) Disposition Comment: Stable Prescriptions/Referrals Prescriptions/Med Rec: No Action ibuprofen 800 mg tablet 800 mg PO TID PRN (Reason: pain) Qty: 30 0RF hydrocodone-acetaminophen 5-325 mg tablet 1 tab PO BID MDD 10 PRN (Reason: pain) Qty: 8 0RF ibuprofen 800 mg tablet 800 mg PO Q8H Qty: 14 0RF hydrocodone-acetaminophen 5-325 mg tablet 1 tab PO Q8HR PRN (Reason: Pain) Patient Comments: take 1 to 2 tablets by mouth every 8 to 12 hours NEEDED FOR PAIN acetaminophen 500 mg tablet 500 mg PO Q6H PRN (Reason: fever or pain) Qty: 30 0RF Problem List Clinical Impression: Leg pain Patient/Caregiver Discharge Instructions Discharge Activity: activity as tolerated Education Materials: ED Myalgias Additional Instructions: Take [id number] Tylenol or ibuprofen as needed. Elevate extremity when sitting or laying down. Follow-up with primary care provider in 2 to 3 days. Return to emergency department for any worsening symptoms or as needed. Print Language: Kyrgyz Stand Alone Forms: [facility] Award Info., Patient Portal Info Letter PA/BEAU Supervising Physician JUNIOR/BEAU Supervising Physician: Dr. Mendez
[2024-11-17] MEDS: IBUPROFEN TAB 600 MG TABLET PO (00:55)
== END 2024-11-17 00:57 | disposition home or self-care (01) ==
LOC: SERX 11-17 04:15
PROVIDERS: Emergency Provider Emergency Medicine; PCP Family Medicine
DX: M79.605 Pain in left leg (principal)
CPT/HCPCS: 99281; A9270

== ENCOUNTER 2024-11-17 15:36 | Emergency (ER) | payer MEDICAID, SELFPAY ==
[2024-11-17 15:39] VITALS: BP 121/72; PULSE 102; RESP 19; TEMP 37.2; O2SAT 96; BMI 22.8
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
--- NOTE | 2024-11-17 15:49 | PC.NURSE ---
DR. SUNSHINE AT BEDSIDE ASSESSING PT.
--- NOTE | 2024-11-17 16:05 | PC.NURSE ---
PT'S L LEG WRAPPED IN GAUZE BANDAGE.
== END 2024-11-17 16:05 ==
LOC: SERX 16:02
PROVIDERS: Emergency Provider Emergency Medicine
DX: Z02.89 Encounter for other administrative examinations (principal); I89.0 Lymphedema, not elsewhere classified
CPT/HCPCS: 99281

== ENCOUNTER 2025-03-02 19:49 | Emergency (ER) | payer MEDICAID, SELFPAY ==
[2025-03-02 20:51] VITALS: BP 136/84; PULSE 105; RESP 20; TEMP 37.2; O2SAT 95
--- NOTE | 2025-03-02 21:10 | XR_ITS ---
Examination: Tibia-Fibula, left , 2 views Technique: Tibia-fibula AP lateral 2 views Date and time of exam: March 02, 2025 2126 hours Comparison October 04, 2023 INDICATION: Worsening left lower leg pain beginning one week ago, history tibial fracture, nonunion, chronic osteomyelitis history FINDINGS: Partially healed fracture mid to distal tibial shaft Marked abnormal trabecular accentuation at the fracture site with periosteal new bone and cortical bone destruction especially anterior surface of the tibia at the fracture site IMPRESSION: Worsening chronic osteomyelitis at the patient's tibial fracture site compared with October 04, 2023
--- NOTE | 2025-03-02 21:10 | PD.EDRME ---
Rapid Medical Screening Exam E Arrival date/time: 03/02/25 19:49 30M with history of drug use, homelessness, and chronic lower extremity cellulitis/osteo presents to ED with 1 week of worsening LLE pain and swelling. Chief Complaint: Extremity Problem,Nontraumatic Vital signs: Vital Signs Temperature 98.9 F 03/02/25 20:51 Pulse Rate 105 H 03/02/25 20:51 Respiratory Rate 20 03/02/25 20:51 Blood Pressure 136/84 H 03/02/25 20:51 Pulse Oximetry (%) 95 03/02/25 20:51 Oxygen Delivery Method Room Air 03/02/25 20:51
[2025-03-02 22:11] LABS: Basophils % (Auto) 0 % (0-2.5); Eosinophils % (Auto) 0 % (0-10); Hematocrit 36.8 % (41.0-53.0); Hemoglobin 12.5 g/dL (13.5-16.0); Immature Granulocytes % (Auto) 0 % (0-0); Immature Granulocytes Auto 0.02 Thou/mm3 (0.00-0.00); Lymphocytes # (Auto) 1.4 Thou/mm3 (1.0-4.8); Lymphocytes % (Auto) 18 % (10-50); Mean Corpuscular Hemoglobin 29.3 pg (25.0-35.0); Mean Corpuscular Volume 86 fL (80-100); Monocytes # (Auto) 0.5 Thou/mm3 (0.0-0.8); Monocytes % (Auto) 7 % (0-12); Neutrophils # (Auto) 5.7 Thou/mm3 (1.8-7.7); Neutrophils % (Auto) 74 % (37-80); Nucleated Red Blood Cell % 0 /100 WBC (0); Platelet Count 283 Thou/mm3 (140-440); RDW Standard Deviation 38.8 fL (35.1-43.9); Red Blood Count 4.27 Miln/mm3 (4.50-5.90); White Blood Count 7.7 Thou/mm3 (3.8-10.6)
[2025-03-02 22:37] LABS: Sed Rate (ESR) 26 mm/hr (0-15)
[2025-03-03 00:06] LABS: Alanine Aminotransferase 37 U/L (10-49); Albumin, Serum 4.8 gm/dL (3.5-5.0); Albumin/Globulin Ratio 1.7 (1.2-2.2); Alkaline Phosphatase 148 U/L (46-116); Anion Gap 9 (7-16); Aspartate Amino Transferase 25 U/L (0-34); BUN/Creatinine Ratio 18 Ratio (12-20); Bilirubin,Total 1.4 mg/dL (0.3-1.2); Blood Urea Nitrogen 18 mg/dL (9-23); Calcium 9.5 mg/dL (8.3-10.6); Calcium (Corrected) 9.5 mg/dL (8.5-10.1); Carbon Dioxide 24.1 mMol/L (20.0-31.0); Chloride 106 mMol/L (98-107); Globulin 2.9 gm/dL (2.3-3.5); Glucose 85 mg/dL (74-106); Osmolality,Calculated 278 (275-295); Sodium 139 mMol/L (136-145); Total Protein 7.7 gm/dL (5.7-8.2); eGFR > 60 See Note
[2025-03-03 00:43] LABS: C-Reactive Protein 8.3 mg/dL (0.0-0.9)
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
== END 2025-03-03 01:41 | disposition home or self-care (01) ==
PROVIDERS: Physician Assistant; Emergency Provider Emergency Medicine
DX: M86.662 Other chronic osteomyelitis, left tibia and fibula (principal)
CPT/HCPCS: 36415; 73590; 80053; 85025; 85652; 86140; 99283

== ENCOUNTER 2025-03-07 22:20 | Emergency (ER) | payer MEDICAID, SELFPAY ==
--- NOTE | 2025-03-07 22:24 | PD.EDRME ---
Rapid Medical Screening Exam RME Arrival date/time: 03/07/25 22:20 Time Seen by Provider: 03/07/25 22:23 RME Narrative: 30-year-old male presents to the ED with a complaint of left lower extremity swelling which is chronic. He has chronic osteomyelitis. He was seen here on 03/03/[address] Zheng and given doxycycline and told to follow-up with Dr. Ortega. He did not pick and shovel man his medications from the pharmacy and he has not contacted Dr. Ortega. He is requesting something to drink.
== END 2025-03-08 05:15 | disposition home or self-care (01) ==
LOC: SERX 23:02
PROVIDERS: Emergency Provider Emergency Medicine; PCP Family Medicine
DX: M79.89 Other specified soft tissue disorders (principal); Z53.29 Procedure and treatment not carried out because of patient's decision for other reasons

== ENCOUNTER 2025-03-24 23:39 | Emergency (ER) | payer MEDICAID, SELFPAY ==
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
[2025-03-24 23:50] VITALS: BP 137/95; PULSE 100; RESP 18; TEMP 36.9; O2SAT 96; BMI 23.5
--- NOTE | 2025-03-24 23:52 | EKG_ITS ---
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
[2025-03-25 00:11] LABS: Lactate (Lactic Acid) 1.7 mMol/L (0.4-2.0)
[2025-03-25 00:14] VITALS: BP 137/95; PULSE 100
[2025-03-25] MEDS: METOPROLOL SUCCINATE XL 25 MG TABCR 100 MG PO (00:14)
[2025-03-25] MEDS: cloNIDine HCL 0.1 MG TABLET PO (00:14)
[2025-03-25] MEDS: ACETAMINOPHEN 325 MG TABLET 650 MG PO (00:14)
[2025-03-25 00:17] LABS: Basophils # (Auto) 0.1 Thou/mm3 (0.0-0.2); Basophils % (Auto) 1 % (0-2.5); Eosinophils # (Auto) 0.9 Thou/mm3 (0.0-0.5); Eosinophils % (Auto) 9 % (0-10); Hematocrit 44.1 % (41.0-53.0); Hemoglobin 15.5 g/dL (13.5-16.0); Immature Granulocytes % (Auto) 0 % (0-0); Immature Granulocytes Auto 0.02 Thou/mm3 (0.00-0.00); Lymphocytes # (Auto) 1.8 Thou/mm3 (1.0-4.8); Lymphocytes % (Auto) 18 % (10-50); Mean Corpuscular HGB Conc 35.1 g/dl (31.0-37.0); Mean Corpuscular Hemoglobin 29.2 pg (25.0-35.0); Mean Corpuscular Volume 83 fL (80-100); Monocytes # (Auto) 1.1 Thou/mm3 (0.0-0.8); Monocytes % (Auto) 11 % (0-12); Neutrophils # (Auto) 6.2 Thou/mm3 (1.8-7.7); Neutrophils % (Auto) 62 % (37-80); Nucleated Red Blood Cell % 0 /100 WBC (0); Platelet Count 227 Thou/mm3 (140-440); RDW Standard Deviation 40.4 fL (35.1-43.9); White Blood Count 9.9 Thou/mm3 (3.8-10.6)
[2025-03-25 00:27] LABS: Sed Rate (ESR) 26 mm/hr (0-15)
[2025-03-25 00:38] LABS: Alanine Aminotransferase 24 U/L (10-49); Albumin, Serum 5.4 gm/dL (3.5-5.0); Albumin/Globulin Ratio 1.8 (1.2-2.2); Alcohol, Blood Medical < 3.0 mg/dL (0-10.0); Alkaline Phosphatase 217 U/L (46-116); Anion Gap 15 (7-16); Aspartate Amino Transferase 35 U/L (0-34); BUN/Creatinine Ratio 27 Ratio (12-20); Bilirubin,Direct 0.7 mg/dL (0.0-0.3); Bilirubin,Total 2.7 mg/dL (0.3-1.2); Blood Urea Nitrogen 43 mg/dL (9-23); C-Reactive Protein 4.3 mg/dL (0.0-0.9); Calcium 9.6 mg/dL (8.3-10.6); Calcium (Corrected) 9.6 mg/dL (8.5-10.1); Carbon Dioxide 23.2 mMol/L (20.0-31.0); Chloride 100 mMol/L (98-107); Creatinine (Component) 1.6 mg/dL (0.6-1.3); Estimated Creatinine Clearance 74.9 mL/min (>60); Free T4 (Free Thyroxine) 1.64 ng/dL (0.89-1.76); Glucose 119 mg/dL (74-106); Magnesium 2.4 mg/dL (1.6-2.6); Osmolality,Calculated 287 (275-295); Potassium 3.7 mMol/L (3.4-5.1); Sodium 138 mMol/L (136-145); Thyroid Stimulating Hormone 1.78 uIU/mL (0.55-4.78); Total Protein 8.4 gm/dL (5.7-8.2); Troponin I < 0.020 ng/mL (0.0-0.045); eGFR 58 See Note
[2025-03-25 00:40] LABS: Procalcitonin 0.18 ng/ml (0.0-0.49)
[2025-03-25 00:49] LABS: D-Dimer 817 ng/mL (<600)
[2025-03-25 00:57] LABS: B-Type Natriuretic Peptide < 20 pg/mL (0-100)
[2025-03-25 01:35] VITALS: BP 142/94; PULSE 82; RESP 16; TEMP 36.8
== END 2025-03-25 01:41 ==
LOC: SERX 03-25 01:37
PROVIDERS: Emergency Provider Emergency Medicine; PCP Family Medicine
DX: Z02.89 Encounter for other administrative examinations (principal); M79.89 Other specified soft tissue disorders
CPT/HCPCS: 36415; 80053; 80307; 80320; 82248; 83605; 83735; 83880; 84145; 84439; 84443; 84484; 85025; 85379; 85652; 86140; 93005; 99283; A9270; G0480

== ENCOUNTER 2025-05-14 09:15 | Emergency (ER) | payer MEDICAID, SELFPAY ==
[2025-05-14 09:48] VITALS: BP 126/81; PULSE 106; RESP 18; TEMP 36.9; O2SAT 96
--- NOTE | 2025-05-14 15:03 | EDNOTE_ITS ---
ED General RME/HPI General Chief complaint: General Adult/Misc Complain Stated complaint: wants rx for [place] Time Seen by Provider: 05/14/25 09:32 Source: patient Arrival date/time: 05/14/25 09:15 This is a 30-year-old male who presents to the emergency department and request for [place] prescription. Patient reports that he had a injury in his left ankle 2 years ago and has chronic pain has not been able to get into his pain management clinic. Patient states he does not see a primary doctor on a routine basis. Has not tried any other medication. Mode of arrival: ambulatory Related Data Home Medications ?Medication ?Instructions ?Recorded ?Confirmed hydrocodone 5 mg-acetaminophen 325 1 tab PO Q8HR PRN P ain 12/10/23 mg tablet Previous Rx's ?Medication ?Instructions ?Recorded hydrocodone 5 mg-acetaminophen 325 1 tab PO BID PRN pa in #8 tabs 05/06/24 mg tablet ibuprofen 800 mg tablet 800 mg PO TID PRN pain #30 t abs 05/06/24 ibuprofen 800 mg tablet 800 mg PO Q8H #14 tabs 06/13 acetaminophen 500 mg tablet 500 mg PO Q6H PRN fever or pain 10/19/24 #30 tabs hydrocodone 5 mg-acetaminophen 325 1 tab PO Q6H PRN pa in #14 tabs 03/03/25 mg tablet ibuprofen 800 mg tablet (IBU) 800 mg PO Q8H #20 tabs 0 05/14/25 Allergies Allergy/AdvReac Type Severity Reaction Status Date / Time No Known Allergies Allergy Verified 05/14/25 09:16 Review of Systems Review of Systems Systems Reviewed: All systems reviewed, normal except as documented Narrative Review of Systems: Gen: No fever, no chills, no weight loss EYES: No discharge, no visual changes, no pain HEENT: No ear pain, no congestion, no sore throat PULM: No shortness of breath, no cough, no congestion CV: No chest pain, no dyspnea on exertion, no palpitations GI: No nausea, no vomiting, no diarrhea, no pain, no constipation : No frequency, no urgency, no dysuria Musc/skel: No joint pain, no back pain Skin: No rash Psyc: No hallucinations, no depression Heme/Lymph: No easy bleeding or bruising tendencies Neuro: No weakness, no headache ED Exam Narrative Physical exam: General: Disheveled male appears to be homeless answering questions HENT: normocephalic, atraumatic, EOMI, PERRLA, moist mucous membranes Chest: chest wall is nontender Cardiac: regular rate and rhythm, normal S1 and S2, no murmurs, rubs, or gallops, capillary refill ?2 seconds Pulmonary: clear to auscultation bilaterally, no wheezing, crackles, or rhonchi Abdominal: active bowel sounds, soft, nontender, nondistended Neuro: A&OX3, CN II-XII intact, sensation grossly intact bilaterally in UE and LE. Skin: no rashes, no ecchymosis Ext: no lower extremity edema Course Quality Measures none Vital Signs Vital signs: Vital Signs Temperature 98.5 F 05/14/25 09:48 Pulse Rate 106 H 05/14/25 09:48 Respiratory Rate 18 05/14/25 09:48 Blood Pressure 126/81 05/14/25 09:48 Pulse Oximetry (%) 96 05/14/25 09:48 Oxygen Delivery Method Room Air 05/14/25 09:48 Discharge Plan Plan Patient Disposition: HOME (Self Care) Patient condition on transfer: Stable Prescriptions/Referrals Prescriptions/Med Rec: New ibuprofen [IBU] 800 mg tablet 800 mg PO Q8H Qty: 20 0RF No Action ibuprofen 800 mg tablet 800 mg PO TID PRN (Reason: pain) Qty: 30 0RF hydrocodone-acetaminophen 5-325 mg tablet 1 tab PO BID MDD 10 PRN (Reason: pain) Qty: 8 0RF ibuprofen 800 mg tablet 800 mg PO Q8H Qty: 14 0RF hydrocodone-acetaminophen 5-325 mg tablet 1 tab PO Q6H MDD 4 tabs PRN (Reason: pain) Qty: 14 0RF hydrocodone-acetaminophen 5-325 mg tablet 1 tab PO Q8HR PRN (Reason: Pain) Patient Comments: take 1 to 2 tablets by mouth every 8 to 12 hours NEEDED FOR PAIN acetaminophen 500 mg tablet 500 mg PO Q6H PRN (Reason: fever or pain) Qty: 30 0RF Problem List Clinical Impression: Chronic pain Patient/Caregiver Discharge Instructions Discharge Activity: activity as tolerated Education Materials: ED Chronic Pain Additional Instructions: Please make an appointment with your primary doctor Return to the emergency department for any worsening symptoms change in condition. Print Language: Chilean Stand Alone Forms: [facility] Award Info., Patient Portal Info Letter PA/BEAU Supervising Physician PA/CUSTOMER SALES DISTRIBUTOR Supervising Physician: keith JEAN Clinical Information Provided by none Medical Records Reviewed None Meds/Rx Considered, not Ordered None Labs/Rad/Tests considered, not Ordered None Chronic Illness/Social Conditions which may negatively complicate care or outcome(s)-explain: Homeless, Mental health, Hx of noncompliance and ETOH/drugs/substance abuse EKG EKG not done Lab Interpretation Labs: none Imaging Imaging interpretation: none Medication Administration(s) All medications administered and effective Diagnosis Differential diagnosis: Chronic pain Most likely dx, and/or detailed dx discussion: Chronic pain malingering Dispositon Disposition: Discharge Home
== END 2025-05-14 10:31 | disposition home or self-care (01) ==
PROVIDERS: Emergency Provider Family Medicine
DX: M25.572 Pain in left ankle and joints of left foot (principal); G89.29 Other chronic pain; T14.90XS Injury, unspecified, sequela; X58.XXXS Exposure to other specified factors, sequela
CPT/HCPCS: 99283

== ENCOUNTER 2025-07-07 16:30 | Emergency (ER) | payer MEDICAID, SELFPAY ==
[2025-07-07 16:33] VITALS: BMI 24.4
[2025-07-07 16:59] VITALS: BP 130/65; PULSE 98; RESP 18; TEMP 37.3; O2SAT 95
--- NOTE | 2025-07-07 17:02 | XR_ITS ---
Examination: Foot, left, 3 views Technique: AP, oblique, lateral views foot, 3 views Date and time of exam: July 07, 2025, 1752 hrs. 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
--- NOTE | 2025-07-07 17:02 | XR_ITS ---
Examination: Tibia-Fibula, left , 2 views Technique: Tibia-fibula AP lateral 2 views Date and time of exam: July 07, 2025, 1552 hrs. Comparison: March 02, 2025 Indications: Swelling and pain post lower leg surgery 3 years ago. 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
--- NOTE | 2025-07-07 17:02 | XR_ITS ---
Examination: Duplex scan of the lower extremity, unilateral left Date and time of exam: July 07, 2025 1721 hrs. Indications: Left leg pain beginning 2 months ago Technique: Duplex scan of the extremity veins using B-mode/grayscale imaging and Doppler spectral analysis and color flow Attention is directed to internal echogenicity, compression and augmentation involving these veins, color flow assessment, spectral analysis Findings: Major deep venous structures in the extremity demonstrate normal course and caliber. There is no evidence of deep vein thrombosis. Normal color flow and spectral analysis Impression: Negative for DVT..
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
[2025-07-07 18:01] LABS: Lactate (Lactic Acid) 1.0 mMol/L (0.4-2.0)
[2025-07-07 18:20] LABS: Sed Rate (ESR) 10 mm/hr (0-15)
[2025-07-07 18:22] LABS: Basophils # (Auto) 0.1 Thou/mm3 (0.0-0.2); Basophils % (Auto) 1 % (0-2.5); Eosinophils # (Auto) 0.0 Thou/mm3 (0.0-0.5); Eosinophils % (Auto) 0 % (0-10); Hematocrit 39.3 % (41.0-53.0); Hemoglobin 13.1 g/dL (13.5-16.0); Immature Granulocytes Auto 0.02 Thou/mm3 (0.00-0.00); Lymphocytes # (Auto) 1.1 Thou/mm3 (1.0-4.8); Lymphocytes % (Auto) 11 % (10-50); Mean Corpuscular HGB Conc 33.3 g/dl (31.0-37.0); Mean Corpuscular Hemoglobin 30.2 pg (25.0-35.0); Mean Corpuscular Volume 91 fL (80-100); Monocytes # (Auto) 0.8 Thou/mm3 (0.0-0.8); Monocytes % (Auto) 9 % (0-12); Neutrophils # (Auto) 7.7 Thou/mm3 (1.8-7.7); Neutrophils % (Auto) 80 % (37-80); Nucleated Red Blood Cell # 0.00 Thou/mm3 (0.00-0.00); Nucleated Red Blood Cell % 0 /100 WBC (0); Platelet Count 164 Thou/mm3 (140-440); RDW Standard Deviation 42.7 fL (35.1-43.9); Red Blood Count 4.34 Miln/mm3 (4.50-5.90); White Blood Count 9.7 Thou/mm3 (3.8-10.6)
[2025-07-07 18:30] LABS: Alanine Aminotransferase 39 U/L (10-49); Albumin, Serum 4.9 gm/dL (3.5-5.0); Albumin/Globulin Ratio 1.9 (1.2-2.2); Alkaline Phosphatase 169 U/L (46-116); Anion Gap 14 (7-16); Aspartate Amino Transferase 67 U/L (0-34); BUN/Creatinine Ratio 20 Ratio (12-20); Bilirubin,Total 4.2 mg/dL (0.3-1.2); Blood Urea Nitrogen 22 mg/dL (9-23); C-Reactive Protein 4.4 mg/dL (0.0-0.9); Calcium 9.5 mg/dL (8.3-10.6); Calcium (Corrected) 9.5 mg/dL (8.5-10.1); Carbon Dioxide 23.4 mMol/L (20.0-31.0); Chloride 102 mMol/L (98-107); Creatinine (Component) 1.1 mg/dL (0.6-1.3); Estimated Creatinine Clearance 105.8 mL/min (>60); Globulin 2.6 gm/dL (2.3-3.5); Glucose 82 mg/dL (74-106); Osmolality,Calculated 279 (275-295); Potassium 4.4 mMol/L (3.4-5.1); Procalcitonin 0.35 ng/ml (0.0-0.49); Sodium 139 mMol/L (136-145); Total Protein 7.5 gm/dL (5.7-8.2); eGFR > 60 See Note
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
[2025-07-07] MEDS: IBUPROFEN TAB 600 MG TABLET PO (20:29)
[2025-07-07 21:28] LABS: Collection Type, Urine Clean Catch
[2025-07-07 21:35] LABS: Bilirubin,Urine Negative (Negative); Blood,Urine Negative (Negative); Clarity,Urine Clear (Clear/Hazy); Color,Urine Yellow (Lt Yel-Yel); Culture Indicated,Urine Not Indicated; Glucose, Urine Negative (Negative); Ketones,Urine 2+ (Negative); Leukocyte Esterase,Urine Negative (Negative); Nitrite,Urine Negative (Negative); PH,Urine 6.0 (5.0-7.0); Protein,Urine 2+ (Neg - Trace); RBC,Urine 6 /hpf (0-3); Specific Gravity,Urine 1.035 (1.001-1.035); Squamous Epithelial Cell,Urine < 1 /hpf (0-5); Urobilinogen,Urine Negative mg/dL (0.0-1.0); WBC,Urine 1 /hpf (0-5)
[2025-07-07 21:44] LABS: Amphetamine/Methamp Scrn,U Positive (Negative); Barbiturate Screen,Urine Negative (Negative); Benzodiazepines Screen,Urine Negative (Negative); Benzoylecgonine Screen, Ur Negative (Negative); Fentanyl Screen,Urine Negative (Negative); Opiate Screen,Urine Negative (Negative); THC Screen,Urine Positive (Negative)
--- NOTE | 2025-07-07 21:48 | XR_ITS ---
Examination: Abdomen sonogram, Limited Date and time of exam: July 07, 2025 10:10 PM Indications: Elevated bilirubin labrum. Examination today Technique: Real-time cheung scale transabdominal sonographic images of the upper abdomen obtained. Findings: Sludge, negative for gallstones, normal gallbladder wall Normal common bile duct 0.3 cm Pancreatic head 2.1 cm Liver 16.7 cm smooth contour no focal liver lesions Normal hepatopedal portal venous flow Patent IVC Impression: Gallbladder sludge, negative for cholelithiasis, negative for cholecystitis Normal common bile duct Moderate hepatomegaly no focal liver lesions
[2025-07-07 22:54] VITALS: BP 124/75; PULSE 80; RESP 18; TEMP 37.1; O2SAT 97
== END 2025-07-07 23:27 | disposition home or self-care (01) ==
PROVIDERS: Nurse Practitioner Primary Care; Emergency Provider Emergency Medicine
DX: M86.662 Other chronic osteomyelitis, left tibia and fibula (principal); S82.302K Unspecified fracture of lower end of left tibia, subsequent encounter for closed fracture with nonunion; X58.XXXD Exposure to other specified factors, subsequent encounter; R16.0 Hepatomegaly, not elsewhere classified; F15.90 Other stimulant use, unspecified, uncomplicated
CPT/HCPCS: 36415; 73590; 73630; 76705; 80053; 80307; 81001; 83605; 84145; 85025; 85652; 86140; 87040; 93971; 99284; A9270

== ENCOUNTER 2025-08-25 01:20 | Emergency (ER) | payer MEDICAID, SELFPAY ==
[2025-08-25 01:23] VITALS: PULSE 98; RESP 20; O2SAT 97; BMI 25.7
[2025-08-25 01:53] VITALS: BP 125/81; PULSE 75; RESP 18; TEMP 37.3; O2SAT 96
--- NOTE | 2025-08-25 02:08 | EDNOTE_ITS ---
ED Skin Abcess FB-RME/HPI General Chief complaint: Extremity Problem,Nontraumatic Stated complaint: BLE PAIN, EDEMA AND BLISTERS Time Seen by Provider: 08/25/25 01:55 Arrival date/time: 08/25/25 01:20 30M with history of drug use, homelessness, and chronic lower extremity cellulitis/osteo presents to ED with some open wounds on BLE. Patient also wants some food and water. Limitations: no limitations Related Data Home Medications ?Medication ?Instructions ?Recorded ?Confirmed hydrocodone 5 mg-acetaminophen 325 1 tab PO Q8HR PRN P ain 12/10/23 mg tablet Previous Rx's ?Medication ?Instructions ?Recorded hydrocodone 5 mg-acetaminophen 325 1 tab PO BID PRN pa in #8 tabs 05/06/24 mg tablet ibuprofen 800 mg tablet 800 mg PO TID PRN pain #30 t abs 05/06/24 ibuprofen 800 mg tablet 800 mg PO Q8H #14 tabs 06/13 acetaminophen 500 mg tablet 500 mg PO Q6H PRN fever or pain 10/19/24 #30 tabs hydrocodone 5 mg-acetaminophen 325 1 tab PO Q6H PRN pa in #14 tabs 03/03/25 mg tablet ibuprofen 800 mg tablet (IBU) 800 mg PO Q8H #20 tabs 0 05/14/25 acetaminophen 300 mg-codeine 15 mg 1 tab PO Q8H PRN pa in #16 tabs 07/07/25 tablet acetaminophen 300 mg-codeine 15 mg 1 tab PO Q8H PRN pa in #16 tabs 07/07/25 tablet mupirocin 2 % topical ointment 1 applic topical BID #2 2 grams 08/25/25 (Centany) penicillin V potassium 500 mg 500 mg PO BID 14 days #2 8 tabs 08/25/25 tablet Allergies Allergy/AdvReac Type Severity Reaction Status Date / Time No Known Allergies Allergy Verified 08/25/25 01:22 Review of Systems Review of Systems Systems Reviewed: All systems reviewed, normal except as documented Integumentary/Breasts Skin/Breast: Reports as per HPI, Reports skin ulcer and Reports sores Past Medical History Past Medical History NEUROLOGIC: Negative Neurological Disorders or Seizures CARDIAC: Negative Cardiac Disorders or Congestive Heart Failure RESPIRATORY: Negative Chronic Obstructive Pulmonary Disease (COPD) or Asthma GASTROINTESTINAL: Negative Gastrointestinal Disorders or Hepatitis GENITOURINARY: Negative Genitourinary Disorders or Renal Disease REPRODUCTIVE: Negative Testicular Cancer MUSCULOSKELETAL: Positive Musculoskeletal Disorders, Fractures and Osteomyelitis; Negative Carpal Tunnel Syndrome ENT: Negative Cataracts ENDOCRINE: Negative Endocrine Disorders, Diabetes Mellitus Type 1 or Diabetes Mellitus Type 2 HEMATOLOGIC: Negative Blood Disorders or Sickle Cell Disease PSYCHO/SOCIAL: Positive Recreational Drug Use OTHER HISTORY: Positive Hospitalization and Anesthesia Reactions; Negative Autoimmune Disease, Down Syndrome, Developmental Delay, Shingles, Falls, Blood Transfusion Reaction, Organ Transplant, Chemotherapy, Radiation Therapy, Hyperbaric Therapy, MRSA, VRSA, Vancomycin-Resistant Enterococci, Human Immunodeficiency Virus (HIV), Chicken Pox, Measles, Mumps, Rubella ([place] Measles), Pertussis, Clostridium Difficile, Cancer or Testicular Cancer Family History FAMILY HISTORY: Negative Family Psychiatric Problems, Family Respiratory Disorders, Family Cardiac Disorders, Family Gastrointestinal Problems, Family Cancer, Family Surgery or Family Anesthesia Reaction Surgical History SURGICAL: Positive Joint Replacement and Open Reduction Internal Fixation; Negative Cardiac Surgery, Carotid Endarterectomy, Endocrine Surgery, Thyroidectomy, Ear Surgery, Tympanostomy Tube, Eye Surgery, Nose Surgery, Oral Surgery, Tonsillectomy, Adenoidectomy, Cochlear Implant, Corneal Transplant, Throat Surgery, Abdominal Surgery, Tracheostomy, Nephrectomy, Transurethral Resection, Amputation, Arthroscopy, Neurologic Surgery, Brain Shunt, Vasectomy or Organ Transplant Social History SMOKING STATUS: Current every day smoker SECOND HAND EXPOSURE: No (couple cig once or twice a week>10yrs-QUIT 12/08/23) SUBSTANCE USE: methamphetamine ED Exam General Limitations: Present no limitations General appearance: Present alert and in no apparent distress Head Head exam: Present atraumatic Neck Neck exam: Present normal inspection, full ROM and trachea midline Chest Chest inspection: Present normal inspection and symmetric chest wall rise Expanded Lower Extremity Exam Lower leg exam: Present other (small open wounds) Neurological Exam Neurological exam: Present alert and oriented X3 Psychiatric Psychiatric exam: Present normal affect and normal mood Skin Skin exam: Present warm, dry, intact and normal color Course Quality Measures none Orders Category Date Time Status Wound Care NOW Care 08/25/25 01:57 Active Penicillin Vk [Pen Vk] Med 08/25/25 01:58 Discontinued 500 mg PO X1 ONE Vital Signs Vital signs: Vital Signs Temperature 99.1 F 08/25/25 01:53 Pulse Rate 75 08/25/25 01:53 Respiratory Rate 18 08/25/25 01:53 Blood Pressure 125/81 08/25/25 01:53 Pulse Oximetry (%) 96 08/25/25 01:53 Oxygen Delivery Method Room Air 08/25/25 01:53 O2 at 96% on RA and WNLs Skin / Abscess / Foreign Body MDM Narrative MDM Narrative:: 30M with history of drug use, homelessness, and chronic lower extremity cellulitis/osteo presents to ED with some open wounds on BLE. Patient also wants some food and water. Physical exam reveals several small open wounds on BLE. Patient is afebrile, calm, and alert. Wound cleaned and bandaged. Meds and savings counselor given, including to reach back out to wound care center through PCP. Will give penicillin given last culture results showed sensitivity to penicillin and resistance to most SSTI agents such as doxy and clinda. Patient data External records reviewed:: [facility] previous records Clinical information provided by:: patient Social determinants that could affect healthcare access:: housing Patient has the following chronic illnesses:: drug use, homelessness, and chronic lower extremity cellulitis/osteo How is presenting disease/condition affected by chronic disease/condition?: caused by Evaluation data The following diagnostics were reviewed and interpreted by me:: other (specify) (none) Lab and/or radiology exams considered but not ordered:: not ordered Interpretation Summary: n/a Medications / Prescriptions Medications or Prescriptions considered but not ordered:: ordered Medication administrations:: Medication Administration History Discontinued Medications Penicillin V Potassium (Penicillin Vk 250 Mg Tablet) 500 mg PO X1 ONE Stop: 08/25/25 01:59 above Consultations Consultation(s) initiated? (list below): No Diagnosis Skin/Abscess Differential Diagnosis: abscess of skin or subcutaneous tissue, viral exanthem, dermatophytosis, urticaria, herpes zoster, allergic reaction to drug, cellulitis, eczema, insect bites, impetigo, contact dermatitis and other (chronic osteomyelitis ) Most likely diagnosis given after review of the tests above:: chronic osteomyelitis Admission Indicated Admission indicated?: not indicated Admission Request Was there a request for admission?: No Disposition Plan Disposition Plan: Discharge Discharge Attestation Discharge Attestation: The patient and all family members were given an opportunity to ask questions and understood the discharge instructions. Discharge instructions specifically effects, indications for sooner follow up or return to the emergency department, and the expected course of current diagnosis. Patient condition: Stable Discharge Plan Plan Patient Disposition: HOME (Self Care) Discharge Disposition comment: Stable Prescriptions/Referrals Prescriptions/Med Rec: New mupirocin [Centany] 2 % ointment 1 applic topical BID Qty: 22 0RF penicillin V potassium 500 mg tablet 500 mg PO BID 14 Days Qty: 28 0RF No Action ibuprofen 800 mg tablet 800 mg PO TID PRN (Reason: pain) Qty: 30 0RF hydrocodone-acetaminophen 5-325 mg tablet 1 tab PO BID MDD 10 PRN (Reason: pain) Qty: 8 0RF ibuprofen 800 mg tablet 800 mg PO Q8H Qty: 14 0RF hydrocodone-acetaminophen 5-325 mg tablet 1 tab PO Q6H MDD 4 tabs PRN (Reason: pain) Qty: 14 0RF ibuprofen [IBU] 800 mg tablet 800 mg PO Q8H Qty: 20 0RF acetaminophen-codeine 300-15 mg tablet 1 tab PO Q8H PRN (Reason: pain) Qty: 16 0RF acetaminophen-codeine 300-15 mg tablet 1 tab PO Q8H MDD 3 tab PRN (Reason: pain) Qty: 16 0RF hydrocodone-acetaminophen 5-325 mg tablet 1 tab PO Q8HR PRN (Reason: Pain) Patient Comments: take 1 to 2 tablets by mouth every 8 to 12 hours NEEDED FOR PAIN acetaminophen 500 mg tablet 500 mg PO Q6H PRN (Reason: fever or pain) Qty: 30 0RF Problem List Clinical Impression: Cellulitis, Chronic osteomyelitis Patient/Caregiver Discharge Instructions Education Materials: Osteomyelitis Dc, ED Cellulitis Additional Instructions: Please follow-up with PCP within 24-48 hours and return immediately if symptoms worsen. Can ask PCP for new referral to [facility] wound [facility] [place]. Print Language: Lebanese Stand Alone Forms: Patient Portal Info Letter PA/MOVIE WRITER Supervising Physician JUNIOR/MOVIE WRITER Supervising Physician: Dr. Foster
[2025-08-25] MEDS: PENICILLIN VK 250 MG TABLET 500 MG PO (02:25)
--- NOTE | 2025-08-25 03:25 | PC.NURSE ---
wounds to R foot cleaned with soapy water. entire r foot cleaned. xeroform dressing applied to wounds. pt instructed on care of wounds and given supplies. pt verbalizes understanding.
== END 2025-08-25 03:35 | disposition home or self-care (01) ==
LOC: SERX 03:57
PROVIDERS: Emergency Provider Emergency Medicine
DX: M86.60 Other chronic osteomyelitis, unspecified site (principal); L03.90 Cellulitis, unspecified
CPT/HCPCS: 99282; A9270